=== PATIENT | male | born 1985 | race Caucasian/White ===

== ENCOUNTER 2017-11-17 19:32 | Emergency (ER) | payer SELFPAY ==
--- NOTE | 2017-11-17 19:48 | ED Physician Documentation ---
Foot Injury - HISTORIAN Historian: patient - HPI Stated Complaint: right great toe pain Chief Complaint: Foot Injury Onset: hours (6) Where: home Severity: mild Context: other (hit his toe on the box springs ) Further Comments: yes (He states he "stubbed" his toe on the box springs and has had swelling and pain) - ROS CONST: no problems CVS/RESP: none NEURO: denies: headache, dizziness GI/: denies: nausea, vomiting MS/SKIN/LYMPH: none - PAST HX Past History: none Immunizations: UTD Allergies/Adverse Reactions: Allergies Allergy/AdvReac Type Severity Reaction Status Date / Time No Known Allergies Allergy Verified 11/17/17 19:49 Home Medications: Ambulatory Orders Medication Instructions Recorded NK [NK] 11/17/17 - SOCIAL HX Smoking History: non-smoker Alcohol Use: none - FAMILY HX Family History: none - VITAL SIGNS Vital Signs: Vital Signs Temp Pulse Resp BP Pulse Ox 122/70 11/30/15 17:54 - REVIEWED ASSESSMENTS Nursing Assessment Reviewed: Yes Vitals Reviewed: Yes ED Results Lab/Radiology - Radiology Radiology Impressions: Right foot, 3 views History: Swelling, pain, attention 1st toe. Findings: The osseous, joints and soft tissue structures are normal. Impression: Normal. Electronically signed on Nov 17, 2017 8:26:50 PM NUMERICAL CONTROL LATHE OPERATOR by: Stepan Ye - Orders Orders: ED Orders Category Date Time Status XRAY FOOT [FOOT 3 VIEWS OR MORE] [RAD] Stat Exams 11/17/17 Ordered Foot Injury Physical Exam - Physical Exam General Appearance: no acute distress, alert Foot: right foot: bone tenderness, deformity, limited range of motion, pain, soft tissue tenderness, swelling, left foot: non-tender, normal inspection, normal range of motion, no evidence of injury, abrasions/lacerations, N/A: nail injury, nodule Ankle: N/A: non-tender, normal inspection, normal range of motion, no evidence of injury, abrasions/laceration, bone tenderness, deformity, ecchymosis, joint effusion, limited range of motion, nodules, pain, soft tissue tenderness, swelling, other Gait: limited by pain Neuro: sensation nml, motor nml Vascular: no vascular compromise Tendons: tendon function nml Leg/Knee/Thigh: uninjured above ankle Skin: intact, warm, other (along great toe swelling and bruising ) Head/ENT: nml inspection Neck/Back: nml inspection Resp/CVS: chest non-tender, breath sounds nml, heart sounds nml, no resp. distress, lungs clear, reg. rate & rhythm Discharge Clincal Impression: Right foot pain Referrals: Primary Doctor,No [Primary Care Provider] - 2 Days Comments: 1. Keep foot elevated 2. Ice 3. Ibuprofen as needed for pain 4. Rest Condition: Stable Disposition: 01 HOME, SELF-CARE Decision to Admit: NO Date of Decison to Admit: 11/17/17 Decision Time: 20:35
[2017-11-17 19:54] VITALS: BP 121/80
--- NOTE | 2017-11-17 20:31 | Diagnostic Imaging Report ---
EMILIA WREN [facility] [address] [facility] [address] [address] Report Submission Date: Nov 17, 2017 8:26:50 PM BOILER TECHNICIAN Patient Study Name: BRI SANON Date: Nov 17, 2017 8:03:28 PM BOILER TECHNICIAN MRN: [id number] Modality Type: DX Gender: M Description: LOWER EXTREMITY : 89 Institution: [facility] Physician: EMILIA WREN Right foot, 3 views History: Swelling, pain, attention 1st toe. Findings: The osseous, joints and soft tissue structures are normal. Impression: Normal. Electronically signed on Nov 17, 2017 8:26:50 PM BOILER TECHNICIAN by: Stepan HAN
== END 2017-11-17 20:39 | disposition home or self-care (01) ==
LOC: ED 19:32
DX: M79.674 Pain in right toe(s) (principal)
CPT/HCPCS: 73630; 99282